=== PATIENT | male | born 1955 | race Caucasian/White ===

== ENCOUNTER 2022-05-28 06:34 | Day surgery (SDC) | payer MEDICARE ==
[~2022-05-28] VITALS: Ht 182.9 cm; Wt 97.0 kg
[~2022-05-28 06:34] MED LIST: LIPITOR20 MG PO; VITAMIN D325 MCG PO
[2022-05-28 07:04] VITALS: BP 151/78
[2022-05-28 08:40] VITALS: BP 119/72
--- NOTE | 2022-05-28 08:46 | NUR ---
05/28/22 0846 Dottie Jones 0814 PT ARRIVED IN PACU SLEEPY WITH NO C/O'S. ABD SOFT. 0825 RESTING. REU. 0835 SITTING UP IN BED SIPPING ON JUICE. AT BEDSIDE. ALL QUESTIONS ANSWERED. 0845 DC INSTRUCTIONS GIVEN.
--- NOTE | 2022-05-28 10:39 | NUR ---
PT TAKEN FOR SCOPE,CONNECTED WITH CATINA. SHE REQUESTED CHANGES BE MADE ON ADMISSION RECORDS. KAILYN IN ADMITTING WILL MAKE CHANGES. GAVE BLEJAREDING, WILL FOLLOW NEEDED
--- NOTE | 2022-05-28 11:16 | OR ---
[facility] [address], [place] [address] Signed DATE OF OPERATION: 05/28/2022 SURGEON: Abhilash Chew MD PREOPERATIVE DIAGNOSES: 1. Mother with possible colon cancer. 2. Cologuard positive stool in January 2022. 3. Hemorrhoidectomy at age 55 in 2010. 4. Negative colonoscopy in [address] 52 [address] Messina. POSTOPERATIVE DIAGNOSES: 1. 2-3 cm tumor anterior rectal midline at 5 cm (clip). 2. 5 mm polyp at rectosigmoid junction (25 cm). 3. Three diverticula at rectosigmoid junction. PROCEDURE: Colonoscopy with hot biopsy and clip x1. ESTIMATED BLOOD LOSS: None. INDICATIONS: Juvenal is a 66-year-old gentleman, asked to see me for his 2nd colonoscopy. He thinks his mother may have had colon cancer. She lives in [place]. She was coming through the pandemic and had been constipated. His sister was giving her lots of laxatives. She ended up finally having some bleeding and a colonoscopy and apparently was rushed urgently to the OR. He is quite convinced now she has an ileostomy. Unfortunately, he did not call his sister to get the details. His mom is demented and not able to give the details. He is certain his paternal great grandmother had stomach cancer. He had a positive Cologuard test in January 2022. Dr. Messina did his negative colonoscopy in 2007 at the age of 52. He had an external thrombosed hemorrhoid removed in 2010 at the age of 55. He said he has no lower GI complaints currently. 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 I had given him a pamphlet on colonoscopy in the office. He recalls the test well. There is risk including, but not limited to gas bloating, crampy abdominal pain, bleeding, perforation requiring surgery, and missed diagnosis. We also reviewed the written instructions for the bowel prep line by line. We also reviewed the need for IV conscious sedation. He had expressed understanding and wished to proceed. PROCEDURE NOTE: Electronically Signed By: ABHILASH CHEW MD 05/28/22 1116 PATIENT NAME: JUVENAL SMALL OPERATIVE REPORT DATE OF : 51 REPORT #: [id number] PHYSICIAN: ABHILASH CHEW MD PCP: APOORVA DECKER DO REPORT IS CONFIDENTIAL AND NOT TO BE RELEASED WITHOUT AUTHORIZATION [facility] [address], [place] [address] Signed Juvenal was taken into our endoscopy suite and placed in the left lateral decubitus position. He was given a total of 9 mg of Versed and 200 mcg of fentanyl to cover the case. A digital rectal exam was performed. He has minimal external hemorrhoids. He had good sphincter tone. I could feel a tumor over the top of the prostate at about 5 cm or so. The adult colonoscope had been introduced and advanced under direct visualization. His prep was good. We could easily see the appendiceal orifice and the ileocecal valve. The scope was then slowly withdrawn. We took pictures throughout for photodocumentation. We took a polyp out at the rectosigmoid junction at 25 cm. That polyp was about 5 mm. He also has three diverticula right at the rectosigmoid colon. They were moderate in size. The scope was retroflexed and we could easily see this tumor just above the anal canal. Because of the folds, it was a little difficult to get a picture. We anteflexed the camera and brought the camera down and we could see it much better. We went ahead and took several biopsies of that tumor. The one in was bleeding just a little, so we went ahead and placed a clip. I repeated the digital rectal exam and I can feel this tumor in the clip in the anterior midline. I does not feel that the tumor is fixed to underlying structures. After this, the gas was suctioned out and the colonoscope removed. Juvenal tolerated the procedure quite well. RECOMMENDATIONS: I will see Juvenal back in my office in 7 to 14 days to review his results. We will have to review this tumor in his distal rectum. Abhilash Chew MD ALB/MODL /[id number] cc: DO Abhilash Gonzalez MD Copies: APOORVA DECKER DO Electronically Signed By: ABHILASH CHEW MD 05/28/22 1116 PATIENT NAME: JUVENAL SMALL OPERATIVE REPORT DATE OF : 51 REPORT #: [id number] PHYSICIAN: ABHILASH CHEW MD PCP: APOORVA DECKER DO REPORT IS CONFIDENTIAL AND NOT TO BE RELEASED WITHOUT AUTHORIZATION [address] [address] Signed ABHILASH CHEW MD ~ Electronically Signed By: ABHILASH CHEW MD 05/28/22 1116 PATIENT NAME: JUVENAL SMALL OPERATIVE REPORT DATE OF : 51 REPORT #: [id number] PHYSICIAN: ABHILASH CHEW MD PCP: APOORVA DECKER DO REPORT IS CONFIDENTIAL AND NOT TO BE RELEASED WITHOUT AUTHORIZATION
--- NOTE | 2022-05-31 15:13 | PATH ---
[facility] [address], [place] [address] Signed SPECIMEN(S): A RECTAL POLYP AT 10 CM SPECIMEN(S): B COLON POLYP AT 25 CM SPECIMEN(S): C RECTUM MASS BX SPECIMEN SOURCE: A. RECTAL POLYP AT 10 CM B. COLON POLYP AT 25 CM C. RECTUM MASS BX CLINICAL HISTORY: Positive Cologuard. Rectal mass. Polyps, diverticula, external hemorrhoid. FINAL PATHOLOGIC DIAGNOSIS: A. Rectal polyp at 10 cm: - Hyperplastic polyp (two fragments). B. Colon polyp at 25 cm: - Hyperplastic polyp (one fragment). C. Rectum mass biopsy: - Tubular adenoma. - See comment. COMMENT: The rectal mass biopsy shows tubular adenoma. There is no unequivocal evidence of high grade dysplasia or invasive tumor on these sections, however, this may be due to sampling variation if there is a high suspicion for malignancy. Clinical correlation with appropriate follow-up is recommended. As part of [facility] Quality Improvement Program, this case was reviewed by another member of our pathology staff. WILBERTO:DS:leonel:C2NR MICROSCOPIC EXAMINATION: Histologic sections of all submitted blocks are examined by light microscopy. These findings, together with the gross examination, support the pathologic diagnosis. GROSS DESCRIPTION: A. The specimen, labeled and designated "Juvenal Antonio, 1" and designated on the requisition "rectum polyp 10 cm," is received in formalin and consists of two martin soft tissue fragments that measure 0.3 and 0.3 cm in greatest dimension. The specimen is entirely submitted in (A1). PATIENT NAME: JUVENAL ANTONIO PATHOLOGY DATE OF : 51 REPORT #: [id number] PHYSICIAN: [employer] [facility] PCP: APOORVA DECKER DO REPORT IS CONFIDENTIAL AND NOT TO BE RELEASED WITHOUT AUTHORIZATION [facility] [address], [place] [address] Signed B. The specimen, labeled and designated "Juvenal Antonio, 2" and designated on the requisition "colon polyp at 25 cm," is received in formalin and consists of one martin soft tissue fragment that is 0.4 cm in greatest dimension. The specimen is entirely submitted in (B1). C. The specimen, labeled and designated "Juvenal Antonio, 3" and designated on the requisition "rectum mass biopsy at 5 cm," is received in formalin and consists of four red and white soft tissue fragments that range in size from 0.1 cm up to 0.4 cm in greatest dimension. The specimen is entirely submitted in (C1). FB (under the direct supervision of a pathologist) The Gross Description was prepared using a voice recognition system. The report was reviewed for accuracy; however, sound-alike word errors, addition and/or deletions may occur. If there is any question about this report, please contact Client Services. PERFORMING LABORATORY: The technical component was performed by [facility], [address] [place] [id number] (CLIA# [id number]). Professional interpretation was performed by [facility], [address] [place] [id number] (CLIA#: [id number]). Diagnostician: Fan Austin MD Pathologist Electronically Signed 05/31/2022 Copies: ~ PATIENT NAME: JUVENAL ANTONIO PATHOLOGY DATE OF : 51 REPORT #: [id number] PHYSICIAN: [facility] PCP: APOORVA DECKER DO REPORT IS CONFIDENTIAL AND NOT TO BE RELEASED WITHOUT AUTHORIZATION
== END 2022-05-28 08:50 | disposition home or self-care (01) ==
LOC: DS 06:34
PROVIDERS: ATTEND Colon & Rectal Surgery
PROC: 0DBP8ZX Excision of Rectum, Via Natural or Artificial Opening Endoscopic, Diagnostic (ICD-10-PCS; principal; 2022-05-28 07:30)
DX: Z12.11 Encounter for screening for malignant neoplasm of colon (principal); R19.5 Other fecal abnormalities; Z80.0 Family history of malignant neoplasm of digestive organs; K64.4 Residual hemorrhoidal skin tags; E78.00 Pure hypercholesterolemia, unspecified; I10 Essential (primary) hypertension; E55.9 Vitamin D deficiency, unspecified; F17.200 Nicotine dependence, unspecified, uncomplicated; D12.8 Benign neoplasm of rectum; K63.5 Polyp of colon
CPT/HCPCS: 88305; 99153; G0500; J2250; J3010; J7121